=== PATIENT | male | born 1980 | race Hispanic/Latino ===

== ENCOUNTER 2020-09-23 12:21 | Emergency (ER) | payer BC ==
[~2020-09-23] VITALS: Ht 172.7 cm; Wt 105.2 kg
[2020-09-23] MEDS ORDERED: ACETAMINOPHEN 325 MG TAB PO ONE (12:45)
[2020-09-23] MEDS ORDERED: ASPIRIN 81 MG CHEW TAB PO ONE (12:45)
[2020-09-23 13:10] LABS: BASOPHILS % 0.3 % (0.0-1.0); EOSINOPHILS % 0.4 % (0.0-6.0); HEMATOCRIT 44.9 % (38.2-49.6); HEMOGLOBIN 14.7 g/dL (14.0-18.0); LYMPHOCYTES # (AUTO) 2.5 (1.0-3.2); LYMPHOCYTES % 35.4 % (18.0-39.1); MEAN CORPUSCULAR HEMOGLOBIN 28.2 pg (28-32); MEAN CORPUSCULAR HGB CONC 32.7 g/dL (31-35); MONOCYTES # (AUTO) 0.7 (0.2-0.8); MONOCYTES % 10.2 % (4.4-11.3); NEUTROPHILS # (AUTO) 3.8 (2.1-6.9); NEUTROPHILS % 53.1 % (38.7-80.0); PLATELET COUNT 202 x10e3/uL (140-360); RED BLOOD COUNT 5.22 x10e6/uL (4.3-5.7); RED CELL DISTRIBUTION WIDTH 13.4 % (11.7-14.4)
[2020-09-23] MEDS ORDERED: SODIUM CHLORIDE 0.9% 1000ML 1,000 ML ONE (13:14)
[2020-09-23] MEDS ORDERED: SODIUM CHLORIDE 0.9% 1000ML 1,000 ML IV ONE (13:15)
[2020-09-23 13:29] LABS: ALBUMIN 3.5 g/dL (3.5-5.0); ALBUMIN/GLOBULIN RATIO 0.8 (0.8-2.0); ANION GAP 15.9 mmol/L (8-16); CALCIUM 8.6 mg/dL (8.4-10.2); CREATININE, SERUM 0.96 mg/dL (0.72-1.25); POTASSIUM 3.9 mmol/L (3.5-5.1)
[2020-09-23] MEDS ORDERED: IBUPROFEN 800MG/ 200ML 200 ML IV ONE (14:00)
[2020-09-23] MEDS ORDERED: BAMLANIVIMAB / ETESEVIMAB 2,100 MG in SODIUM CHLORIDE 0.9% 250ML 250 ML IV ONE (14:15)
[2020-09-23] MEDS ORDERED: AMMONIA AROMATIC INHAL 0.33 ML AMP INH ONE (16:00)
[2020-09-23 16:38] VITALS: BP 124/99
== END 2020-09-23 16:51 | disposition home or self-care (01) ==
LOC: ER 13:00
DX: U07.1 COVID-19 (principal); R50.9 Fever, unspecified; R06.02 Shortness of breath; R05 Cough; I10 Essential (primary) hypertension; E11.9 Type 2 diabetes mellitus without complications; E78.5 Hyperlipidemia, unspecified; F17.210 Nicotine dependence, cigarettes, uncomplicated
CPT/HCPCS: 36415; 71045; 80053; 82550; 82553; 83880; 84484; 85025; 87040; 99284; J7030; J7050; U0002